=== PATIENT | female | born 1980 | race Caucasian/White ===

== ENCOUNTER → 2020-01-19 | Outpatient (CLI) | payer BC ==
[~2020-01-19] MED LIST: LEVOXYL0.15 MG PO; LEVOXYL0.175 MG PO; LORTAB 5/500 501 TAB PO; MACROBID100 MG PO; NEXIUM 20MG CAP20 MG PO; NO HOME MEDICATIONS; PRENATAL VITAMI1 TA5 PO; PRENATAL1 TA7 PO; VITAMIN D 50,1.25 MG PO; VITAMIN D32000 IU PO; ZINC SO4 PO; ZOFRAN 4MG T4 MG/TAB PO; ZOFRAN4 M1 PO
== END ==
LOC: MC.RAD 09:26
DX: Z12.31 Encounter for screening mammogram for malignant neoplasm of breast (principal)

== ENCOUNTER → 2021-01-20 | Outpatient (CLI) | payer BC | LOC: MC.RAD 08:39 | DX: Z12.31 Encounter for screening mammogram for malignant neoplasm of breast (principal) ==